=== PATIENT | male | born 1995 | race African-American/Black ===

== ENCOUNTER 2023-11-16 17:08 | Emergency (ER) | payer OTHER ==
[~2023-11-16] VITALS: Ht 182.9 cm; Wt 90.7 kg
[2023-11-16 17:31] VITALS: TEMP 97.6
[2023-11-16] MEDS: FAMOTIDINE/PF INJ 20 MG/2 ML VIAL IV ONE (18:00)
[2023-11-16] MEDS: IV NS 0.9% 1,000 ML BAG IV ONE (18:00)
[2023-11-16] MEDS: ONDANSETRON HCL/PF 4 MG/2 ML VIAL IVP ONE (18:00)
[2023-11-16] MEDS ORDERED: KETOROLAC TROMETHAMINE 15 MG/ML VIAL ONE (18:29)
[2023-11-16] MEDS ORDERED: ONDANSETRON HCL/PF 4 MG/2 ML VIAL ONE (18:29)
[2023-11-16] MEDS ORDERED: FAMOTIDINE/PF INJ 20 MG/2 ML VIAL IV ONE (18:29)
[2023-11-16] MEDS: KETOROLAC TROMETHAMINE 15 MG/ML VIAL IV ONE (18:30)
[2023-11-16 18:34] LABS: BASOPHILS % (AUTO) 0.2 % (0.0-2.0); EOSINOPHILS % (AUTO) 0.5 % (0.0-6.0); HEMATOCRIT 43 % (39-51); HEMOGLOBIN 13.7 g/dL (13.5-17.5); LYMPHOCYTES # (AUTO) 0.5 K/uL (0.8-4.8); LYMPHOCYTES % (AUTO) 4.9 % (20.0-44.0); MEAN CORPUSCULAR HEMOGLOBIN 23 PG (26.0-33.0); MEAN CORPUSCULAR HGB CONC 32 g/dl (31.0-36.0); MEAN CORPUSCULAR VOLUME 71 fL (80-96); MONOCYTES # (AUTO) 0.5 K/uL (0.1-1.30); MONOCYTES % (AUTO) 5.6 % (2.0-12.0); NEUTROPHILS # (AUTO) 8.5 K/uL (1.8-8.9); NEUTROPHILS % (AUTO) 88.8 % (43.0-81.0); PLATELET COUNT (AUTO) 237 K/uL (150-450); RED BLOOD CELL COUNT(AUTO) 6.08 MIL/uL (4.5-6.0); RED CELL DISTRIBUTION WIDTH 14.8 % (11.5-15.0); WHITE BLOOD COUNT (AUTO) 9.6 K/uL (4.3-11.0)
[2023-11-16 18:41] LABS: CALCIUM, SERUM 9.1 mg/dL (8.5-10.1); CREATININE 1.4 mg/dL (0.6-1.3); POTASSIUM 3.9 mmol/L (3.5-5.1)
[2023-11-16 18:46] LABS: BILIRUBIN,DIRECT 0.2 mg/dL (0.0-0.2); BILIRUBIN,TOTAL 0.7 mg/dL (0.2-1.0); TOTAL PROTEIN, SERUM 8.3 g/dL (6.4-8.2)
[2023-11-16] MEDS ORDERED: ONDA4TAB5 PO (19:51)
[2023-11-16] MEDS ORDERED: ALBU6.7H9 INH (20:06)
[2023-11-16 20:19] VITALS: BP 128/84; O2SAT 99
[2023-11-16 21:32] LABS: ANISOCYTOSIS 1+; BAND % (MANUAL) 3 % (0.0-5.0); LYMPHOCYTES % (MANUAL) 4 % (16-48); MONOCYTES % (MANUAL) 7 % (0-11.0); NEUTROPHILS % (MANUAL) 86 (42-76); PLATELET ESTIMATE ADEQUATE
== END 2023-11-16 20:19 | disposition home or self-care (01) ==
LOC: ER 17:13
DX: R10.9 Unspecified abdominal pain (principal); R11.2 Nausea with vomiting, unspecified; R19.7 Diarrhea, unspecified; J45.909 Unspecified asthma, uncomplicated; Z20.822 Contact with and (suspected) exposure to COVID-19
CPT/HCPCS: 99284; 96374; 96375; 96361; 87426; 87804 ×2; 85025; 80048; 83690; 80076; 36415; 85007; J3490; J2405; J7030; J1885

== ENCOUNTER 2023-11-26 18:05 | Emergency (ER) | payer OTHER ==
[~2023-11-26] VITALS: Ht 182.9 cm; Wt 90.7 kg
[~2023-11-26 18:05] MED LIST: ALBU6.7H9 INH; ONDA4TAB5 PO
[2023-11-26 18:16] VITALS: BP 129/71; TEMP 98.6; O2SAT 100
[2023-11-26] MEDS ORDERED: ALBU18HF2 INH (18:19)
== END 2023-11-26 18:24 | disposition home or self-care (01) ==
LOC: ER 18:10
DX: J45.909 Unspecified asthma, uncomplicated (principal); Z76.0 Encounter for issue of repeat prescription; Z79.51 Long term (current) use of inhaled steroids

== ENCOUNTER 2024-02-07 14:24 | Emergency (ER) | payer OTHER ==
[~2024-02-07] VITALS: Ht 182.9 cm; Wt 91.2 kg
[~2024-02-07 14:24] MED LIST changes: +ALBU18HF2 INH
[2024-02-07] MEDS ORDERED: methylPREDNISolone SOD SUCC 125 MG/2ML VIAL ONE (14:43)
[2024-02-07] MEDS ORDERED: IV NS 0.9% 1,000 ML BAG IV ONE (15:00)
[2024-02-07] MEDS ORDERED: IPRATROPIUM NEB FS 0.5 MG/2.5 ML AMPUL.NEB NEB ONE (15:00)
[2024-02-07] MEDS ORDERED: ALBUTEROL FS 2.5 MG/3 ML VIAL.NEB NEB ONE (15:00)
[2024-02-07] MEDS ORDERED: methylPREDNISolone SOD SUCC 125 MG/2ML VIAL IV ONE (15:00)
[2024-02-07 15:03] VITALS: BP 130/79; TEMP 98.8; O2SAT 18
== END 2024-02-07 15:04 | disposition home or self-care (01) ==
LOC: ER 14:45
DX: J45.909 Unspecified asthma, uncomplicated (principal); Z76.0 Encounter for issue of repeat prescription; Z79.899 Other long term (current) drug therapy
CPT/HCPCS: J2919; J7030

== ENCOUNTER → 2024-02-29 | Emergency (ER) | payer OTHER ==
[~2024-02-29] VITALS: Ht 182.9 cm; Wt 83.9 kg
[~2024-02-29] MED LIST changes: +ALBU8.5H8 INH; +ALBUTEROL FS 2.5 MG/3 ML VIAL.NEB ONE
[2024-02-29 19:28] VITALS: BP 122/79; TEMP 98.6
[2024-02-29] MEDS: ALBUTEROL FS 2.5 MG/3 ML VIAL.NEB NEB ONE (20:14)
[2024-02-29 20:17] VITALS: O2SAT 97
[2024-02-29 20:32] VITALS: O2SAT 99
== END | disposition home or self-care (01) ==
LOC: ER 19:25
DX: J45.909 Unspecified asthma, uncomplicated (principal); Z76.0 Encounter for issue of repeat prescription